=== PATIENT | female | born 1950 | race Caucasian/White ===

== ENCOUNTER → 2019-06-08 11:03 | Outpatient (BNVA) | payer MEDICARE, OTHER, SELFPAY | PROVIDERS: Visit Provider Student in an Organized Health Care Education/Training Program | DX: L72.9 Follicular cyst of the skin and subcutaneous tissue, unspecified (principal); M67.442 Ganglion, left hand | CPT/HCPCS: 99202; 99203 ==

== ENCOUNTER 2019-06-21 08:46 | Day surgery (SDC) | payer MEDICARE, OTHER, SELFPAY ==
[2019-06-21 09:01] VITALS: BP 150/78; PULSE 70; RESP 16; TEMP 36.4; O2SAT 98
--- NOTE | 2019-06-21 10:10 | PDOC.DSDIS_ITS ---
Documented by User: Kari Khan 06/21/19 10:14 Discharge Plan Disposition Patient Disposition: HOME Condition: Good Discharge Details Reason For Visit: Cyst of left index finger Attending Provider: Anurag Gonzalez Primary Care Provider: Arianne Gregory Home Meds and New Rx's Prescriptions: New acetaminophen 500 mg tablet 500 mg PO Q6H PRN (Reason: pain) Qty: 60 RF: 2 ibuprofen 600 mg tablet 600 mg PO TID PRN (Reason: pain) Qty: 60 RF: 2 Continued atenolol 25 mg tablet 25 mg PO DAILY RF: 0 hydrochlorothiazide 12.5 mg tablet 12.5 mg PO DAILY RF: 0 simvastatin 10 mg tablet 10 mg PO DAILY RF: 0 Discharge Instructions Additional Instructions: Discharge Instructions Activity: You should keep the hand elevated as much as possible for the first few days. You may use the other fingers as tolerated but avoid trying to do too much too soon. You may perform light activities with dressing in place. Dressing/Cast: Keep the dressing on for two days. You may then remove the dressing and cover with a bandaid. It may get wet after two days. Medications: - You should take Tylenol and Ibuprofen for baseline pain control. - You may apply ice over the finger. Follow-up: 7 days for suture removal Referrals: Anurag Gonzalez MD [ [facility] STAFF PHYSICIAN] - Activity:: Elevate Remove Dressings/Wound Care:: 48 hours Shower/Bathe:: 48 hours Diet:: As Tolerated Discharge Orders Discharge Orders: Discharge Order (Routine); Ordered 06/21/19 Ordered By: Kari Khan DS: Diagnosis Discharge Diagnosis (1) Mucous cyst of digit of left hand: Status: Acute Documented by User: Anurag Gonzalez MD 06/21/19 11:23 Discharge Plan Disposition Patient Disposition: HOME Condition: Good Discharge Details Reason For Visit: Cyst of left index finger Attending Provider: Anurag Gonzalez Primary Care Provider: Arianne Gregory Home Meds and New Rx's Prescriptions: New acetaminophen 500 mg tablet 500 mg PO Q6H PRN (Reason: pain) Qty: 60 RF: 2 ibuprofen 600 mg tablet 600 mg PO TID PRN (Reason: pain) Qty: 60 RF: 2 Continued atenolol 25 mg tablet 25 mg PO DAILY RF: 0 hydrochlorothiazide 12.5 mg tablet 12.5 mg PO DAILY RF: 0 simvastatin 10 mg tablet 10 mg PO DAILY RF: 0 Discharge Instructions Additional Instructions: Discharge Instructions Activity: You should keep the hand elevated as much as possible for the first few days. You may use the other fingers as tolerated but avoid trying to do too much too soon. You may perform light activities with dressing in place. Dressing/Cast: Keep the dressing on for two days. You may then remove the dressing and cover with a bandaid. It may get wet after two days. Medications: - You should take Tylenol and Ibuprofen for baseline pain control. - You may apply ice over the finger. Follow-up: 7 days for suture removal Referrals: Anurag Gonzalez MD [ [facility] STAFF PHYSICIAN] - Activity:: Elevate Remove Dressings/Wound Care:: 48 hours Shower/Bathe:: 48 hours Diet:: As Tolerated Discharge Orders Discharge Orders: Discharge Order (Routine); Ordered 06/21/19 Ordered By: Kari Khan
[2019-06-21] MEDS: Sodium Bicarbonate 50 MEQ/50 ML VIAL (11:44)
[2019-06-21] MEDS: Lidocaine 1% Multi-Dose 50 ML VIAL (11:44)
--- NOTE | 2019-06-21 11:48 | SOFT_PTH ---
PATIENT: Sandi Machuca LOC: [facility] U#:[id number] AGE/SX: 69/F ROOM: RE06/21/[address]: Anurag Gonzalez MD : 1950 BED: DIS: 06/21/2019 SPEC #: [id number] RECD: 06/21/19 12:53 STATUS: JEWEL REQ #: [id number] JANE: 06/21/19 11:[address]: Anurag Gonzalez DEPT: Surgical Specimen RECD BY: Barby Mandel ENTERED: 06/21/19 12:54 SP TYPE: SOFT OTHR DR: Arianne Gregory Tissues: 1 - SOFT TISSUE MISC (INC. LIPOMA) Procedures: GROSS AND MICRO LEVEL 4 Comments: [id number]
--- NOTE | 2019-06-21 18:09 | W.PM.OP ---
Date of service: 06/21/19 Time of Service: 14:09 Operative Note Operative Note DATE OF PROCEDURE: 06/21/19 PRE-OP DIAGNOSIS: Left Index Finger Cyst POST-OP DIAGNOSIS: same PROCEDURE: Excisional Biopsy of Left Index Finger Mass SURGEON: Anurag Gonzalez ANESTHESIA: local ESTIMATED BLOOD LOSS: 0 PATHOLOGY: other (Cental core of likely caseating inclusion cyst) COMPLICATIONS: None Patient was transported to: same day Patient's condition: stable Indications: I have seen Sandi in clinic for a prominent cyst about the left index finger. It was very prominent and caused discomfort with any direct palpation. The symptoms had not responded to conservative measures. I discussed excisional biopsy with the patient. I reviewed the risks of the procedure to include, but not limited to, bleeding, infection, pain, stiffness, recurrence. Despite these risks, the patient elected to proceed. Findings: There was a well-circumscribed cyst with a chalky material, likely a caseating granuloma or epidermal inclusion cyst. The core of the cyst was sent to pathology. No surrounding changes to the skin or tissue. It was removed in whole. Procedure Description: Lizzie was greeted in the preoperative holding area where the correct side was identified and marked. The consent was reviewed with the patient and signed. All questions were answered. Lizzie was taken back to the operating room. The patient was placed into the supine position on the operating room table with the left arm on an arm board. All bony prominences were well padded. No prophylactic antibiotics were administered since this was a clean, elective hand surgical case. The left arm was then prepped with Chloraprep and draped in a standard fashion with stockinette and extremity drape. A timeout to confirm correct identity, side and site, procedure, allergies, anesthesia, and medical concerns was performed. The surgical site was marked as a longitudinal incision just to the radial side of the mass. This area was then anesthetized with 1% Lidocaine. The patient tolerated this well and once the anesthetic had setup, the procedure began. A longitudinal incision was made through skin only, approximately 1cm. The deep tissues were dissected bluntly. There is a thin covering to an obvious cystic structure. The capsule was entered and there is a chalky caseating type material. This material in the cyst was removed and there was a solid core which was sent to pathology. This entire area was excised and removed. There was no apparent invasion to normal tissue. There is no change to the tissue around this area. The wound was then irrigated and the skin was closed with a 4-0 Nylon. This was dressed with gauze and a Conform dressing. The patient tolerated the procedure well and was returned to the Same Day Surgery area in a stable condition suffering no known complication.
== END 2019-06-21 12:40 | disposition home or self-care (01) ==
PROVIDERS: PCP Family Medicine; Visit Provider Student in an Organized Health Care Education/Training Program
PROC: (CPT 26160; principal; 2019-06-21 11:15)
DX: L94.2 Calcinosis cutis (principal)
CPT/HCPCS: 11421; 88305; 88304

== ENCOUNTER 2019-06-28 09:00 | Outpatient (CLI) | payer MEDICARE, OTHER, SELFPAY | END 2019-06-28 09:20 | PROVIDERS: PCP Family Medicine | DX: Z48.815 Encounter for surgical aftercare following surgery on the digestive system (principal); Z72.9 Problem related to lifestyle, unspecified ==

== ENCOUNTER 2019-07-07 01:46 | Outpatient (CLI) | payer MEDICARE, OTHER, SELFPAY ==
[2019-07-07 07:54] LABS: HCT 47.3 % (36.0-46.0); HGB 15.8 g/dL (12.0-15.5); Mean Corp. HGB Concentration 33.4 g/dL (32.0-36.0); Mean Corpuscular Volume 89.8 fL (80-95); Mean Platelet Volume 10.2 fL (8.0-11.0); Platelet Count 285 x1000/uL (130-400); RBC 5.27 m/cumm (4.00-5.20); RBC Distribution Width 15.1 % (11.7-14.6)
[2019-07-07 08:42] LABS: ALT 24 U/L (14-59); AST 14 U/L (15-37); Albumin 3.9 g/dL (3.4-5.0); Alkaline Phosphatase 60 U/L (46-116); Anion Gap 9.8 mmol/L (3-11); BUN 25 mg/dL (7-18); Bilirubin, Total 0.6 mg/dL (0.2-1.0); CO2 30.2 mmol/L (21.0-32.0); CREATININE 1.69 mg/dL (0.55-1.02); Calcium 9.4 mg/dL (8.5-10.1); Calculated LDL 118 mg/dL; Chloride 102 mmol/L (98-107); Cholesterol 188 mg/dL (50-200); Estimated GFR 29.92 (mL/min/1.73m2); Glucose 97 mg/dL (70-100); HDL Cholesterol 42 mg/dL (40-60); Potassium 3.8 mmol/L (3.5-5.1); Sodium 142 mmol/L (136-145); Total Protein 7.3 g/dL (6.4-8.2); Triglyceride 143 mg/dL (30-150)
== END 2019-07-07 02:06 ==
PROVIDERS: PCP Family Medicine; Visit Provider Family Medicine
DX: E78.00 Pure hypercholesterolemia, unspecified (principal); N19 Unspecified kidney failure; Z87.448 Personal history of other diseases of urinary system
CPT/HCPCS: 36415; 80053; 80061; 85027

== ENCOUNTER 2020-07-05 01:44 | Outpatient (CLI) | payer MEDICARE, OTHER, SELFPAY ==
[2020-07-05 08:13] LABS: HGB 15.3 g/dL (11.2-15.7); MCH 30.2 pg (27.0-33.0); MCV 88.8 fL (80-95); MPV 10.6 fL (8.0-11.0); Platelet Count 254 10^3/uL (130-400); RBC 5.07 10^6/uL (3.93-5.22); RDW 14.9 % (11.7-14.6); WBC 10.15 10^3/uL (4.4-10.8)
[2020-07-05 09:35] LABS: ALT 18 U/L (14-59); AST 15 U/L (15-37); Albumin 3.7 g/dL (3.4-5.0); Alkaline Phosphatase 58 U/L (46-116); Anion Gap 7.8 mmol/L (3-11); BUN 28 mg/dL (7-18); Bilirubin, Total 0.5 mg/dL (0.2-1.0); CO2 31.2 mmol/L (21.0-32.0); CREATININE 1.79 mg/dL (0.55-1.02); Calcium 9.1 mg/dL (8.5-10.1); Chloride 103 mmol/L (98-107); Estimated GFR 27.92 (mL/min/1.73m2); Glucose 96 mg/dL (74-106); Potassium 3.5 mmol/L (3.5-5.1); Sodium 142 mmol/L (136-145)
== END 2020-07-05 02:04 ==
PROVIDERS: PCP Family Medicine; Visit Provider Family Medicine
DX: Z87.448 Personal history of other diseases of urinary system (principal); N19 Unspecified kidney failure; Z00.00 Encounter for general adult medical examination without abnormal findings
CPT/HCPCS: 36415; 80053; 80061; 85027

== ENCOUNTER → 2020-08-12 08:32 | Outpatient (BNVA) | payer MEDICARE, OTHER, SELFPAY | PROVIDERS: PCP Family Medicine; Referring Provider Family Medicine; Visit Provider Student in an Organized Health Care Education/Training Program | DX: M65.331 Trigger finger, right middle finger (principal) | CPT/HCPCS: 20550; 99203; 99214; J1030 ==

== ENCOUNTER 2021-07-31 02:42 | Outpatient (CLI) | payer MEDICARE, OTHER, SELFPAY ==
[2021-07-31 10:09] LABS: ALT 21 U/L (14-59); AST 12 U/L (15-37); Albumin 3.9 g/dL (3.4-5.0); Alkaline Phosphatase 56 U/L (46-116); Anion Gap 9.9 mmol/L (3-11); BUN 28 mg/dL (7-18); Bilirubin, Total 0.4 mg/dL (0.2-1.0); CO2 31.1 mmol/L (21.0-32.0); CREATININE 1.8 mg/dL (0.55-1.02); Calcium 9.7 mg/dL (8.5-10.1); Calculated LDL 118 mg/dL (<100); Chloride 100 mmol/L (98-107); Cholesterol 193 mg/dL (<200); Estimated GFR 27.66 (mL/min/1.73m2); Glucose 102 mg/dL (74-106); HDL Cholesterol 49 mg/dL (40-60); Potassium 3.4 mmol/L (3.5-5.1); Sodium 141 mmol/L (136-145); Total Protein 7.4 g/dL (6.4-8.2); Triglyceride 134 mg/dL (<150)
== END 2021-07-31 02:43 | disposition home or self-care (01) ==
LOC: LBO 02:42
PROVIDERS: PCP Family Medicine; Visit Provider Family Medicine
DX: I10 Essential (primary) hypertension (principal); E78.00 Pure hypercholesterolemia, unspecified; N19 Unspecified kidney failure; Z00.00 Encounter for general adult medical examination without abnormal findings
CPT/HCPCS: 36415; 80053; 80061

== ENCOUNTER → 2022-03-04 07:51 | Outpatient (BNVA) | payer MEDICARE, OTHER, SELFPAY | PROVIDERS: PCP Family Medicine; Referring Provider Family Medicine; Visit Provider Surgery | DX: Z86.010 Personal history of colon polyps (principal); R19.5 Other fecal abnormalities | CPT/HCPCS: 99214 ==

== ENCOUNTER 2022-03-13 07:08 | Day surgery (SDC) | payer MEDICARE, OTHER, SELFPAY ==
--- NOTE | 2022-03-12 22:57 | PDOC.DSDIS_ITS ---
Discharge Plan Disposition Patient Disposition: HOME Condition: Good Discharge Details Reason For Visit: Blood in stool Attending Provider: Lopez Camara Primary Care Provider: Arianne Gregory Home Meds and New Rx's Prescriptions: Continued atenolol 25 mg tablet 25 mg PO DAILY hydrochlorothiazide 12.5 mg tablet 12.5 mg PO DAILY simvastatin 10 mg tablet 10 mg PO HS Discharge Instructions Instructions: Colorectal Polyps (DC), Colonoscopy (DC) Referrals: Lopez Camara MD [ [facility] STAFF PHYSICIAN] - Activity:: Activity as Tolerated Diet:: As Tolerated Discharge Orders Discharge Orders: Discharge Order (Routine); Ordered 03/13/22 Ordered By: Lopez Camara Discharge Data Discharge Comment: Ok for d/c; follow up with primary care DS: Diagnosis Discharge Diagnosis (1) Colorectal polyp detected on colonoscopy: Status: Acute Asessment and Plan: 1. Schedule an appointment to see your primary care physican for routine follow up and result
--- NOTE | 2022-03-12 23:01 | COLE_ITS ---
Colonoscopy Report Date of procedure: 03/13/22 Pre-op diagnosis general: Blood in stool Post-op diagnosis procedure note: other (colorectal polys cecum and rectal) Procedure: colonoscopy with biopsy Surgeon: Lopez Camara Anesthesia Type: MAC Estimated blood loss (mL): 10 Pathology: other (cecal poly, rectal polyps) Complications: None Disposition: same day Indications: Sandi is a 71-year-old woman with a positive Cologuard screening test Prep: Miralax/Dulcolax Procedure Start Time: 08:49 Procedure End Time: 09:38 Retraction Time: 20 Findings: 2 medium polyps in cecum, 2 rectal polyps (25 cm and 30 sm) Procedure Description: After the induction of monitored anesthetic care, and with the patient in left lateral decubitus position, I began by performing an external anorectal exam.? Perineum and skin were normal, as was the anal verge.? There was no evidence of external hemorrhoids.? Next, I performed a digital rectal exam.? I did not appreciate any abnormal findings.? Next, I advanced a colonoscope into the rectal vault.? I performed retroflexion.? I did not see signs of pathologic internal hemorrhoids.? Using insufflation, I then advanced the colonoscope beyond the rectal folds and into the sigmoid colon before advancing towards the cecum.? The quality of the prep was good.? The scope was noted to be in the cecum by identification of the ileocecal valve and appendiceal orifice.? I then began withdrawing the colonoscope using repeated irrigation as necessary for full evaluation of the colonic mucosa. Around the distal cecum I identified 2 medium sized polyps. They appeared sessile in character. ?I was able to remove them with a cold forceps. ?I examined the site, and there was minimal bleeding. ?Once this was completed, I continued to withdraw the scope and examine the remainder of the colonic mucosa.?Around 25 and 30 cm from the anal verge I ident ified 2 more polyps. They both appeared sessile. ?I was able to remove them with a cold forceps. ?I examined the site, and there was minimal bleeding. ?Once this was completed, I continued to withdraw the scope and examine the remainder of the colonic mucosa. Once the scope was withdrawn to the level of the rectum, great care was taken to examine portions of the rectal folds.? Finally, the scope was withdrawn and the patient was brought to the same-day surgery recovery unit as the anesthetic wore off. ?The findings and instructions were shared with the patient prior to discharge.
[2022-03-13 07:26] VITALS: BP 148/92; PULSE 61; RESP 16; TEMP 36.5; O2SAT 100
[2022-03-13] MEDS: Lactated Ringers 1,000 ML 80 ML IV (07:51)
--- NOTE | 2022-03-13 08:35 | W.ANESPRE ---
General Info Date of Service Date Performed: 03/13/22 Height: 5 ft 6 in Weight: 65.4 kg Body Mass Index (BMI): 23.2 Surgical Procedure: Operation Date: 03/13/22 08:50 Proposed Procedure Side Surgeon p Colonoscopy Lopez Camara MD Meds Allergies and Home Medications Allergies Allergy/AdvReac Type Severity Reaction Status Date / Time niacin AdvReac Verified 03/13/22 07:25 Home Medication Medication Instructions Recorded atenolol 25 mg tablet 25 mg PO DAILY 06/08/19 hydrochlorothiazide 12.5 mg tablet 12.5 mg PO DAILY 06/08/19 simvastatin 10 mg tablet 10 mg PO HS 06/08/19 Current Visit Medications: Current Medications Generic Name Dose Route Start Last Admin Trade Name Freq PRN Reason Stop Dose Admin Ringer's Solution 1,000 mls @ 80 mls/hr 03/13/22 06:00 03/13/22 07:51 IV 04/11/22 23:59 80 mls/hr INFUSION JOSETTE Administration IV Miscellaneous Supplies 1 each 03/13/22 06:00 Iv Access IV 04/11/22 23:59 DIRECTED JOSETTE Sodium Chloride 0 ml 03/13/22 06:00 Normal Saline Flush 10 Ml Syr IV 04/11/22 23:59 PRN PRN Sodium Chloride 0 ml 03/13/22 06:00 Normal Saline 10 Ml Vial IJ 04/11/22 23:59 DIRECTED PRN Sterile Water 0 ml 03/13/22 06:00 Water,Injection,Sterile 10 Ml Vial IJ 04/11/22 23:59 DIRECTED PRN PFSH Active Problems Active Problems: Problem Status Onset Code Positive colorectal cancer screening using Cologuard test R19.5 Blood in stool K92.1 Smoker F17.200 Medical History Medical History Hx of essential hypertension Family Hx also Hx of hyperlipidemia Kidney failure Pt. denies this Pain of left calf Trigger middle finger of right hand Surgical History Surgical History (Updated 03/13/22 @ 07:24 by Hilario Alcocer) Hx of colonoscopy Hx of tonsillectomy Mucous cyst of digit of left hand (06/21/19) S/P excision from left index finger Tobacco Smoking/Tobacco Use Status: Current every day Tobacco Type: cigarettes Smoking cigarettes per day: 8 Alcohol Alcohol Intake: current Alcohol intake frequency: a few times a month Alcohol type: wine Substance Use Substance use: Never Substance use type: does not use Vital Signs and Lab Results Vital Signs Most Recent Vital Signs in EMR: Most Recent Vital Signs Temp Pulse Resp BP Pulse Ox 36.5 C 61 16 148/92 H 100 03/13/22 07:26 03/13/22 07:26 03/13/22 07:26 03/13/22 07:26 03/13/22 07:26 Lab Results Blood Type / Crossmatch: No Data to Display Complete Blood Count: No Data to Display Complete Metabolic Panel: No Data to Display Liver Function Panel: No Data to Display Coagulation Panel: No Data to Display Cardiac Panel: No Data to Display Arterial Blood Gas: No Data to Display Venous Blood Gas: No Data to Display Pancreas Panel: No Data to Display Thyroid Panel: No Data to Display Infectious Disease: No Data to Display Blood Cultures: No Data to Display Toxicology Panel: No Data to Display Anesthesia Assessment and Plan Anesthesia History Personal History: No History of Anesthesia Complications Family History: No Family History of Anesthesia Complications Exercise Tolerance Exercise Tolerance: Metabolic Equivalents>4 Pertinent Negatives Pertinent Negatives: No Symptoms of GERD, No Major Cardiovascular Symptoms or Complaints, No Major Pulmonary Symptoms or Complaints (1/2 ppd 40 years, ) and No History of CVA/TIA Cardiac & Pulmonary Exam Cardiac Exam: Normal S1/S2 Heart Sounds Pulmonary Exam: Clear Bilateral Breath Sounds Implantable Cardiac Device Does patient have a Pacemaker or an ICD?: No Airway Exam Known Difficult Airway: No Mallampati Class: 1 Mouth Opening: Normal (> 3cm) Thyromental Distance: Greater than 3 cm Neck Range of Motion: Full ROM Neck Circumference: Thick Teeth Condition: Normal Dentition ASA Classification ASA Score: ASA 2 Emergency Case?: No NPO Status NPO Status: NPO Clears >2 hours, Solids >8 hours Anesthesia Plan Resuscitation Status: Full Code Anesthesia Technique: General Anesthesia Airway Planned: Natural Airway Monitors Used: Standard Monitors
[2022-03-13 08:37] VITALS: BMI 23.2
--- NOTE | 2022-03-13 09:10 | BOWEL_PTH ---
PATIENT: Sandi Machuca LOC: [facility] U#:[id number] AGE/SX: 71/F ROOM: RE03/13/[address]: Lopez Camara MD : 1950 BED: DIS: 03/13/2022 SPEC #: [id number] RECD: 03/13/22 12:52 STATUS: JEWEL REQ #: [id number] JANE: 03/13/22 09:[address]: Lopez Camara DEPT: Surgical Specimen RECD BY: Barby Mandel ENTERED: 03/13/22 12:53 SP TYPE: Bowel OTHR DR: Arianne Gregory Tissues: 1 - BIOPSY BOWEL 2 - BIOPSY BOWEL 3 - BIOPSY BOWEL Procedures: GROSS AND MICRO LEVEL 4 Comments: [id number]
[2022-03-13 09:38] VITALS: BP 116/83; PULSE 56; RESP 16; TEMP 36.4; O2SAT 96
--- NOTE | 2022-03-13 09:42 | W.ANESPOSTOP ---
Postoperative Evaluation Date, Time and Location Date Performed: 03/13/22 Time Performed: 09:42 Patient Location: Day Surgery Unit Vital Signs Most Recent Imported Vital Signs: Most Recent Vital Signs Temp Pulse Resp BP Pulse Ox 36.5 C 61 16 148/92 H 100 03/13/22 07:26 03/13/22 07:26 03/13/22 07:26 03/13/22 07:03/13/22 07:26 Most Recent Manually Entered Vital Signs: Adult Blood Pressure: 116/83 Heart Rate: 56 Respirations: 10 Oxygen Saturation (%): 97 Temperature (C): 36.3 C Pain Score (0-10 Scale): 0 Pain Score Most Recent Pain Score: Most Recent Pain Score Pain Level 0 03/13/22 07:26 Assessment Mental Status: Awake (Alert & Oriented to Patient Baseline) Airway and Respiratory Function: Patent airway with normal (patient baseline) respiratory exam Cardiovascular Function: Hemodynamically Stable Hydration Status: Adequately Hydrated Nausea & Vomiting: No Nausea or Vomiting Pain: Pt. Denies Any Pain Peripheral Nerve Block: Patient did not receive a nerve block
[2022-03-13 09:43] VITALS: BP 116/83; PULSE 56; RESP 10; TEMPC 36.3; O2SAT 97
[2022-03-13 10:13] VITALS: BP 132/76; PULSE 57; RESP 16; TEMP 36.5; O2SAT 100
== END 2022-03-13 10:52 | disposition home or self-care (01) ==
PROVIDERS: PCP Family Medicine; Visit Provider Surgery
PROC: 0DJD8ZZ Inspection of Lower Intestinal Tract, Via Natural or Artificial Opening Endoscopic (ICD-10-PCS; CPT 45378; principal; 2022-03-13 08:45)
DX: K92.1 Melena (principal); K62.1 Rectal polyp; K63.5 Polyp of colon; K63.89 Other specified diseases of intestine
CPT/HCPCS: 45380; 88305

== ENCOUNTER → 2022-05-07 02:24 | Outpatient (CLI) | payer MEDICARE, OTHER, SELFPAY ==
--- NOTE | 2022-05-07 | DI.DEXA_ITS ---
Exam(s) XR DEXA BONE DENSITY W/WO DIVINE EXAM: XR DEXA BONE DENSITY W/WO DIVINE CLINICAL HISTORY: MENOPAUSE Z78.0, SCREENING FOR OSTEOPOROSIS TECHNIQUE: COMPARISON: No exams were available for comparison FINDINGS: Lateral Spine Image: Unremarkable. No compression deformities identified. Left hip: Total T-Score: -2.0. Total Z-Score: -0.3 T- and Z-scores: Findings are consistent with osteopenia. Lumbar Spine: Total T-Score: -1.1 Total Z-Score: 1.2 T- and Z-scores: Findings are consistent with osteopenia. IMPRESSION: No evidence of osteoporosis.
== END ==
PROVIDERS: PCP Family Medicine; Visit Provider Family Medicine
DX: Z78.0 Asymptomatic menopausal state (principal); Z13.820 Encounter for screening for osteoporosis; M85.89 Other specified disorders of bone density and structure, multiple sites
CPT/HCPCS: 77080

== ENCOUNTER 2023-06-02 15:01 | Outpatient (REF) | payer MEDICARE, OTHER, SELFPAY ==
[2023-06-02 15:54] LABS: HGB 15.7 g/dL (11.2-15.7); MCH 29.8 pg (27.0-33.0); MCHC 33.4 % (32.0-36.0); MCV 89 fL (80-95); MPV 11.4 fL (8.0-11.0); Platelet Count 272 10^3/uL (130-400); RBC 5.26 10^6/uL (3.93-5.22); RDW-SD 49.8 fL
[2023-06-02 16:11] LABS: ALT 28 U/L (14-59); AST 17 U/L (15-37); Albumin 3.8 g/dL (3.4-5.0); Alkaline Phosphatase 65 U/L (46-116); BUN 31 mg/dL (7-18); Bilirubin, Total 0.7 mg/dL (0.2-1.0); CREATININE 1.6 mg/dL (0.55-1.02); Calcium 9.8 mg/dL (8.5-10.1); Calculated LDL 120 mg/dL (<100); Chloride 103 mmol/L (98-107); Cholesterol 197 mg/dL (<200); Estimated GFR 33.84 (mL/min/1.73m2); Glucose 100 mg/dL (74-106); HDL Cholesterol 50 mg/dL (40-60); Potassium 3.9 mmol/L (3.5-5.1); Sodium 142 mmol/L (136-145); Total Protein 7.2 g/dL (6.4-8.2); Triglyceride 135 mg/dL (<150)
== END 2023-06-02 15:02 | disposition home or self-care (01) ==
LOC: NCHCN 15:01
PROVIDERS: PCP Family Medicine; Visit Provider Family Medicine
DX: E78.00 Pure hypercholesterolemia, unspecified (principal); N28.9 Disorder of kidney and ureter, unspecified; F17.200 Nicotine dependence, unspecified, uncomplicated; Z00.00 Encounter for general adult medical examination without abnormal findings
CPT/HCPCS: 80053; 80061; 85027

== ENCOUNTER 2024-07-06 01:50 | Outpatient (CLI) | payer MEDICARE, OTHER, SELFPAY ==
[2024-07-06 10:36] LABS: ALT 20 U/L (14-59); AST 21 U/L (15-37); Albumin 3.7 g/dL (3.4-5.0); Alkaline Phosphatase 64 U/L (46-116); Anion Gap 10.2 mmol/L (3-11); BUN 22 mg/dL (7-18); Bilirubin, Total 0.76 mg/dL (0.2-1.0); CO2 29.8 mmol/L (21.0-32.0); CREATININE 1.8 mg/dL (0.55-1.02); Calcium 9.7 mg/dL (8.5-10.1); Calculated LDL 113 mg/dL (<100); Chloride 105 mmol/L (98-107); Cholesterol 200 mg/dL (<200); Estimated GFR 29.02 (mL/min/1.73m2); Glucose 101 mg/dL (74-106); HDL Cholesterol 54 mg/dL (40-60); Potassium 3.6 mmol/L (3.5-5.1); Sodium 145 mmol/L (136-145); Triglyceride 165 mg/dL (<150); Vitamin D 25 Total 48.3 ng/mL (30-100)
== END 2024-07-06 01:51 | disposition home or self-care (01) ==
LOC: LBO 01:51
PROVIDERS: PCP Family Medicine; Visit Provider Family Medicine
DX: E78.00 Pure hypercholesterolemia, unspecified (principal); E55.9 Vitamin D deficiency, unspecified
CPT/HCPCS: 36415; 80053; 80061; 82306

== ENCOUNTER 2024-12-09 11:07 | Outpatient (CLI) | payer MEDICARE, OTHER, SELFPAY ==
--- NOTE | 2024-12-09 11:23 | DI.RAD_ITS ---
Exam(s) XR CHEST 2V PA LATERAL EXAM: XR CHEST 2V PA LATERAL CLINICAL HISTORY: Acute Cough. TECHNIQUE: 2D digital imaging was performed. COMPARISON: No exams were available for comparison FINDINGS: 2 views: Heart size is normal. The mediastinum is not widened. Lungs are clear. No infiltrates nor pleural effusions. IMPRESSION: No acute pulmonary findings. DATA REPOSITORY: RADIATION DOSE DELIVERED:
--- NOTE | 2024-12-09 11:27 | DI.[facility]AD_ITS ---
PROCEDURE INFORMATION: Exam: XR Chest Exam date and time: 12/09/2024 11:10 AM Age: 74 years old Clinical indication: Cough started yesterday TECHNIQUE: Imaging protocol: Radiologic exam of the chest. Views: 2 views. COMPARISON: No relevant prior studies available. FINDINGS: Lungs: Hyperexpanded lung guerrero consistent with COPD. No focal consolidation.. Pleural spaces: Unremarkable. No pleural effusion. No pneumothorax. Heart/Mediastinum: Unremarkable. No cardiomegaly. Bones/joints: Unremarkable. IMPRESSION: No focal consolidation.. Dictated and Authenticated by: Rubén Boss MD. Orderin SHARON NARAYANAN MD
== END 2024-12-09 11:27 ==
PROVIDERS: PCP Family Medicine; Visit Provider Nurse Practitioner Family
DX: R05.1 Acute cough (principal)
CPT/HCPCS: 71046

== ENCOUNTER 2025-03-02 18:39 | Emergency (ER) | payer MEDICARE, OTHER, SELFPAY ==
[2025-03-02 18:40] VITALS: BP 110/69; PULSE 64; RESP 16; TEMP 37.1; O2SAT 95
--- NOTE | 2025-03-02 19:00 | DI.CT_ITS ---
Exam(s) CT ABDOMEN PELVIS W EXAM: CT ABDOMEN PELVIS W CLINICAL HISTORY: periumbilical pain. TECHNIQUE: Imaging Protocol: Axial computed tomography images with coronal and sagittal reformatted images were created and reviewed CONTRAST MATERIAL: Intravenous: Omnipaque 350 Contrast volume:75 ml Oral: no COMPARISON: No exams were available for comparison FINDINGS: ABDOMEN and PELVIS: Lung Bases: No acute findings. Liver: Normal density. No suspicious mass. Gallbladder and biliary tract: No radiodense calculus. No wall thickening or pericholecystic fluid. No biliary dilation. Pancreas: Normal density. No abnormal calcifications or inflammatory process. No evidence of mass. Spleen: Normal. Kidneys: Normal size, contour and axis. No radiodense stones. No obstructive uropathy. No suspicious masses seen. Adrenal glands: No masses seen. Vasculature: Abdominal aorta non-dilated. Atherosclerotic changes with both calcified and noncalcified plaque. Approximate 50 percent narrowing of the lumen of the distal aorta. Severe narrowing of the proximal SMA. Severe narrowing of the proximal right renal artery. The JEAN is patent. Severe plaque of the iliac arteries. The left common iliac artery of appears occluded. Severe disease of the left external iliac artery and proximal left common femoral artery. Soft tissues: Unremarkable. Bladder: No gross wall thickening. No calculi.No focal mass. Bowel: No obstruction. No bowel wall thickening. Appendix normal. Peritoneal cavity: No ascites. No focal collection. No mesenteric inflammatory response. No free air. Bones: Mild degenerative changes and mild scoliosis. Reproductive organs: Unremarkable. Lymph nodes: No pathologically enlarged lymph nodes. IMPRESSION:: No acute abnormality in the abdomen or pelvis. Severe atherosclerotic disease of the aorta and branch vessels. 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 No evidence of bowel ischemia. 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 The preliminary [facility] report was reviewed. RADIATION DOSE DELIVERED: Total DLP DATA REPOSITORY: All CT scans at this facility are submitted to the National Radiology Data Registry (NRDR) Dose Index Registry (DIR) with the [employer] (ACR). RADIATION OPTIMIZATION: All CT scans at this facility use at least one of these dose optimization techniques: automated exposure control; mA and/or kV adjustment per patient size (includes targeted exams where dose is matched to clinical indication); or iterative reconstruction.
[2025-03-02 19:36] LABS: Abs Immature Grans 0.02 10^3/uL (0.0-0.06); HCT 41.3 % (36.0-46.0); HGB 14.0 g/dL (11.2-15.7); Immature Grans % 0.2 %; MCH 29.4 pg (27.0-33.0); MCHC 33.9 % (32.0-36.0); MCV 87 fL (80-95); MPV 9.9 fL (8.0-11.0); Platelet Count 228 10^3/uL (130-400); RBC 4.76 10^6/uL (3.93-5.22); RDW 14.8 % (11.7-14.6); RDW-SD 47.3 fL; WBC 10.13 10^3/uL (4.4-10.8)
[2025-03-02 19:40] LABS: Glucose Negative (Negative)
[2025-03-02 19:48] LABS: C & S Indicated? Yes
[2025-03-02 19:51] LABS: ALT 26 U/L (14-59); AST 26 U/L (15-37); Albumin 3.7 g/dL (3.4-5.0); Alkaline Phosphatase 72 U/L (46-116); Anion Gap 9.8 mmol/L (3-11); BUN 21 mg/dL (7-18); Bilirubin, Total 0.8 mg/dL (0.2-1.0); CO2 28.2 mmol/L (21.0-32.0); Calcium 9.4 mg/dL (8.5-10.1); Chloride 101 mmol/L (98-107); Estimated GFR 39.23 (mL/min/1.73m2); Glucose 101 mg/dL (74-106); Lipase 127 U/L (<78); Potassium 3.9 mmol/L (3.5-5.1); Sodium 139 mmol/L (136-145); Total Protein 7.8 g/dL (6.4-8.2)
[2025-03-02] MEDS: Omnipaque 350 MG/ML 100 ML BTL 75 ML IJ (20:19)
[2025-03-02] MEDS: Normal Saline - Diluent 50 ML VIAL IJ (20:23)
--- NOTE | 2025-03-02 20:50 | DI.VRAD_ITS ---
PROCEDURE INFORMATION: Exam: CT Abdomen And Pelvis With Contrast Exam date and time: 03/02/2025 8:13 PM Age: 74 years old Clinical indication: Other: Periumbilical pain TECHNIQUE: Imaging protocol: Computed tomography of the abdomen and pelvis with contrast. Contrast material: OMNIPAQUE 350; Contrast volume: 75 ml; Contrast route: INTRAVENOUS (IV); COMPARISON: CR XR CHEST 2V PA LATERAL 12/09/2024 11:10 AM FINDINGS: Liver: Normal. Gallbladder and biliary ducts: Normal. Pancreas: Normal. Spleen: Normal. Adrenal glands: Normal. No mass. Kidneys and ureters: Normal. Stomach and bowel: Normal. Appendix: Appendix normal. Intraperitoneal space: Unremarkable. No free air. No significant fluid collection. Vasculature: Atherosclerotic disease of the visualized distal thoracic aorta. Atherosclerotic disease of the abdominal aorta and iliac arteries, with moderate narrowing of the distal abdominal aortic lumen (approximately 50%). Atherosclerotic plaque within the proximal SMA, causing severe luminal narrowing (series 8, image 29). Phleboliths within the pelvis. Lymph nodes: Unremarkable. No enlarged lymph nodes. Urinary bladder: Unremarkable as visualized. Reproductive: Unremarkable as visualized. Bones/joints: Minimal levoscoliosis of the lumbar spine. Soft tissues: Normal. IMPRESSION: 1. No acute abdominal or pelvic abnormality. 2. Other (less critical/noncritical/incidental) findings as above; please refer to the body of report for further details. Dictated and Authenticated by: Igor Purvis MD. Orderin Humberto Dior MD
--- NOTE | 2025-03-02 22:26 | NUR.NOTE ---
pt requesting a blanket. WAS OUT TO SPEAK WITH HER AND SHE WAS OUTSIDE PT WANTS TO KNOW IF SHE IS TRANSFERING OR CONSULT[place] [facility] [place] Barby states that pt should be consult and d/c home after. Pt advised of this. Nursing Note:
[2025-03-02] MEDS: Fosfomycin Tromethamine 3 GM PACKET PO (23:23)
[2025-03-02 23:24] VITALS: BP 123/81; PULSE 60; RESP 16; O2SAT 97
[2025-03-02 23:33] VITALS: BP 123/81; PULSE 60; RESP 16; TEMP 37.1; O2SAT 97
--- NOTE | 2025-03-02 23:35 | W.ED.GENAD ---
Discharge Plan Disposition Patient Disposition: Home Condition: Stable Discharge Details Clinical Impression: Acute UTI, Mesenteric artery thrombosis Primary Care Provider: Arianne Gregory ED Provider: Barby Paul Home Meds and New Rx's Prescriptions: Continued atenolol 25 mg tablet 25 mg PO DAILY hydrochlorothiazide 12.5 mg tablet 12.5 mg PO DAILY simvastatin 10 mg tablet 10 mg PO HS Discharge Instructions Instructions: Urinary Tract Infection, Adult ED Additional Instructions: You will need to see vascular in follow-up, [facility] is aware and should be contacting you to schedule follow-up You received a dose of antibiotic for suspected urinary tract infection we will send your urine for culture Please return should develop fever, chills, worsening pain, nausea vomiting or should any new concerns arise Referrals: Arianne Gregory [Primary Care Provider, Medicine] HPI General Date/Time Provider Initiated Documentation: 03/02/25 18:50. HPI Narrative: The patient is a 74-year-old female with a history of hypertension, hyperlipidemia, and tobacco abuse who presents with abdominal pain that started 48 hours ago. She reports no nausea, vomiting, fever, or chills. She is afebrile and nontoxic in appearance. Distal pulses are intact in all four extremities. There is no tenderness in the abdomen or CVA. No abdominal bruit or pulsatile mass is detected. Cardiac rate and rhythm are regular, and there is no respiratory distress. Related Data Home Medications ?Medication ?Instructions ?Recorded ?Confirmed atenolol 25 mg tablet 25 mg PO DAILY 06/08/19 03/02/25 hydrochlorothiazide 12.5 mg tablet 12.5 mg PO DAILY 06/08/19 03/02/25 simvastatin 10 mg tablet 10 mg PO HS 06/08/19 03/02/25 Allergies Allergy/AdvReac Type Severity Reaction Status Date / Time niacin AdvReac Other (See Verified 03/02/25 18:44 Comment) General Stated Complaint: Abd Prob STEVE: 3 Exam Narrative Exam Narrative: General Appearance: Normal. Vital signs: Within normal limits. HEENT: Within normal limits. Respiratory: No respiratory distress. Cardiovascular: Regular heart rate and rhythm. Gastrointestinal: No abdominal or CVA tenderness. No abdominal bruit or pulsatile mass. Extremities: Distal pulses intact in all extremities. Skin: Warm and dry, no rash. Neurological: Normal. Course Vital Signs Vital signs: Vital Signs Temperature 37.1 C 03/02/25 18:40 Pulse 64 03/02/25 18:40 Respiratory Rate 16 03/02/25 18:40 Blood Pressure 110/69 03/02/25 18:40 Pulse Oximetry 95 03/02/25 18:40 Temperature 37.1 C 03/02/25 23:33 Temperature Source Oral 03/02/25 23:33 Pulse 60 03/02/25 23:33 Respiratory Rate 16 03/02/25 23:33 Blood Pressure 123/81 03/02/25 23:33 Blood Pressure Mean 95 03/02/25 23:24 Blood Pressure Position Sitting 03/02/25 18:40 Pulse Oximetry 97 03/02/25 23:33 Oxygen Delivery Method Room Air 03/02/25 18:40 Oxygen Flow Rate 0 03/02/25 18:40 Pain Level 0 03/02/25 23:33 Lab/Test Results Lab/Test Results: 03/02/25 18:54 Urine - Reflex from Ua Urine Culture - Pending Laboratory Tests Range/Units 03/02/25 03/02/25 03/02/25 18:54 19:26 21:17 WBC (4.4-10.8) 10^3/uL 10.13 RBC (3.93-5.22) 10^6/uL 4.76 Hgb (11.2-15.7) g/dL 14.0 Hct (36.0-46.0) % 41.3 MCV (80-95) fL 87 MCH (27.0-33.0) pg 29.4 MCHC (32.0-36.0) % 33.9 RDW (11.7-14.6) % 14.8 H Plt Count (130-400) 10^3/uL 228 MPV (8.0-11.0) fL 9.9 Immature Gran % % 0.2 Neutrophils % % 49.2 Lymphocytes % % 35.2 Monocytes % % 10.2 Eosinophils % % 4.6 Basophils % % 0.6 Nucleated RBC % (0.0-0.3) % 0.0 Absolute Neutrophils (1.2-6.7) 10^3/uL 4.98 Absolute Lymphocytes (1.2-3.4) 10^3/uL 3.57 H Absolute Monocytes (0.1-0.8) 10^3/uL 1.03 H Absolute Eosinophils (0.0-0.7) 10^3/uL 0.47 Absolute Basophils (0.0-0.2) 10^3/uL 0.06 VBG Lactate (<or=2.0) mmol/L 1.0 Sodium (136-145) mmol/L 139 Potassium (3.5-5.1) mmol/L 3.9 Chloride (98-107) mmol/L 101 Carbon Dioxide (21.0-32.0) mmol/L 28.2 Anion Gap (3-11) mmol/L 9.8 BUN (7-18) mg/dL 21 H Creatinine (0.55-1.02) mg/dL 1.4 H Est GFR (CKD-EPI 2020) (mL/min/1.73m2) 39.23 Glucose (74-106) mg/dL 101 Calcium (8.5-10.1) mg/dL 9.4 Total Bilirubin (0.2-1.0) mg/dL 0.8 AST (15-37) U/L 26 ALT (14-59) U/L 26 Alkaline Phosphatase (46-116) U/L 72 Total Protein (6.4-8.2) g/dL 7.8 Albumin (3.4-5.0) g/dL 3.7 Lipase (<78) U/L 127 H Urine Color (Yellow) Yellow Urine Clarity (Clear) Sl Cloudy Urine pH (5-8) 6.0 Ur Specific [place] (1.005-1.025) 1.020 Urine Protein (Neg-Trace) mg/dL 30 H Urine Ketones (Negative) mg/dL Negative Urine Blood (Negative) Trace-intact H Urine Nitrite (Negative) Positive H Urine Bilirubin (Negative) Negative Urine Urobilinogen (Up to 0.2) mg/dL 0.2 Ur Leukocyte Esterase (Negative) Trace H Urine RBC (0-2) HPF 5-10 H Urine WBC (0-5) HPF 10-20 H Ur Epithelial Cells (Negative) HPF Rare Urine Crystals (Negative) HPF Negative Urine Bacteria (Negative) HPF Packed Urine Casts (Negative) LPF Negative Urine Mucus (Negative) Negative Ur Culture Indicated? Yes Urine Glucose (Negative) mg/dL Negative Medical Decision Making Laboratory: No significant leukocytosis. Urinalysis shows possible infection. Negative lactate. Imaging: CT abdomen/pelvis/chest shows significant SMA stenosis, no significant acute abnormality. Initial Assessment: 74-year-old female with history of hypertension, hyperlipidemia, and tobacco abuse presents with abdominal pain for 48 hours. Denies nausea, vomiting, fever, or chills. Afebrile and nontoxic. Distal pulses intact to all extremities. No abdominal tenderness, CVA tenderness, abdominal bruit, or pulsatile mass. Cardiac rate rhythm regular, no respiratory distress. Differential Diagnosis: - Mesenteric ischemia: Low suspicion clinically based on exam and benign abdominal exam. ED Course: - CT abdomen/pelvis and chest ordered: significant stenosis to the SMA, no evidence of significant acute abnormality. - No significant leukocytosis. - Urinalysis shows possible infection; culture to be sent. - Initiate fosfomycin. - Consulted Dr. Palmer (vascular surgery) at [facility]: recommended close outpatient follow-up with vascular surgery. - Referral to be placed. - Negative lactate. - Reviewed return precautions; patient expressed understanding. Final Assessment: Abdominal pain with significant SMA stenosis noted on CT, no significant acute abnormality. Possible urinary infection to be treated with fosfomycin. Low clinical suspicion for mesenteric ischemia based on exam. Referral to vascular surgery for close outpatient follow-up. Clinical Impression: - Abdominal pain - Significant SMA stenosis - Possible urinary infection Disposition: - Discharge - Follow-Up: Referral to vascular surgery for close outpatient follow-up. MDM Components Evaluation: - Number of Differential Diagnoses or Management Options: Mesenteric ischemia. - Amount and Complexity of Data Reviewed: CT abdomen/pelvis and chest, urinalysis, lactate, consultation with Dr. Palmer (vascular surgery). - Risk of Complication and Morbidity or Mortality: Low suspicion for mesenteric ischemia, possible urinary infection. PFSH All Active Problems Mesenteric artery thrombosis (Acute) Acute UTI (Acute) Hyperplastic colon polyp (Acute) Serrated adenoma of colon (Acute) Colorectal polyp detected on colonoscopy (Acute) Positive colorectal cancer screening using Cologuard test (Acute) Blood in stool (Acute) Smoker (Acute) Medical History (Updated 03/02/25 @ 23:17 by IRA Oliver) Pain of left calf Kidney failure Pt. denies this Trigger middle finger of right hand Hx of hyperlipidemia Hx of essential hypertension Family Hx also Surgical History (Updated 03/27/22 @ 11:22 by Princess Ojeda RN) Hx of tonsillectomy Hx of colonoscopy (~02/2022) Mucous cyst of digit of left hand (06/21/19) S/P excision from left index finger Social History Smoking/Tobacco Use Status: Current every day Tobacco Type: cigarettes Tobacco: How many years used: 30 Smoking risk assessment performed?: Yes Alcohol Intake: current Alcohol Intake frequency: a few times a month Alcohol type: wine Drug use: Never Substance use type: does not use Current gender identity: female Do you feel safe at home: Yes Do you feel safe in your relationship?: Yes
== END 2025-03-02 23:24 | disposition home or self-care (01) ==
PROVIDERS: Emergency Provider Physician Assistant; PCP Family Medicine
DX: K55.069 Acute infarction of intestine, part and extent unspecified (principal); R10.30 Lower abdominal pain, unspecified; N39.0 Urinary tract infection, site not specified; E78.5 Hyperlipidemia, unspecified; F17.210 Nicotine dependence, cigarettes, uncomplicated
CPT/HCPCS: 99284; 99285; 80053; 83690; 87077; 74177; 81003; 81015; 83605; 85025; 87086; 87186; J3490

== ENCOUNTER → 2025-03-22 08:21 | Outpatient (BNVA) | payer MEDICARE, OTHER, SELFPAY | PROVIDERS: PCP Family Medicine; Referring Provider Family Medicine; Visit Provider Surgery | DX: Z12.11 Encounter for screening for malignant neoplasm of colon (principal) | CPT/HCPCS: NC OV ==

== ENCOUNTER → 2025-04-26 09:22 | Outpatient (BNVA) | payer MEDICARE, OTHER, SELFPAY | PROVIDERS: PCP Family Medicine; Referring Provider Family Medicine; Visit Provider Physical Therapy Assistant | DX: Z12.11 Encounter for screening for malignant neoplasm of colon (principal); Z86.0101 Personal history of adenomatous and serrated colon polyps | CPT/HCPCS: 99024 ==

== ENCOUNTER 2025-05-15 07:50 | Day surgery (SDC) | payer MEDICARE, OTHER, SELFPAY ==
--- NOTE | 2025-05-14 13:55 | W.PM.DSUDISC ---
Date of service: 05/15/25 Discharge Plan Disposition Patient Disposition: Home Condition: Good Discharge Details Reason For Visit: Screening colonoscopy Attending Provider: Lopez Camara Primary Care Provider: Arianne Gregory Home Meds and New Rx's Prescriptions: Continued aspirin 81 mg tablet 81 mg PO DAILY atenolol 25 mg tablet 25 mg PO DAILY hydrochlorothiazide 12.5 mg tablet 12.5 mg PO DAILY simvastatin 10 mg tablet 10 mg PO HS Discontinued polyethylene glycol 3350 17 gram/dose powder 17 g PO ONCE Qty: 238 0RF Rx Instructions: Take per colonoscopy instructions provided by ordering providers office bisacodyl [Dulcolax (bisacodyl)] 5 mg tablet,delayed release (DR/EC) 5 mg PO ONCE Qty: 4 0RF Rx Instructions: Take per colonoscopy instructions provided by ordering providers office Discharge Instructions Additional Instructions: Sandi, it was good seeing you today. I hope you feel well this afternoon. Things went smoothly. Your prep was excellent, and I could see everything fine, I did find, and removed a total of 6 polyps today. I suspect these will be a combination of adenomatous and non-adenomatous polyps similar to your last colonoscopy. I will see what the pathologist has to say with regards to the review, once I know the nature of these, I will let you know and have your next colonoscopy. If you need anything, please do not hesitate to call me at any time. 1. If tolerated, consume a soft, low fiber diet for 1-2 days. [address] Do not drive, drink alcohol, operate machinery, make critical decisions, or do activities that require coordination or balance for 24 hours. 3. Because air was put into your colon during the procedure, expelling air from your rectum (passing gas or farting) is normal. 4. You may not have a bowel movement for 1-3 days because of the colonoscopy prep. This is normal. 5. Go directly to the emergency room if you notice any of the following: Develop chills (warm to touch), or if you have a thermometer and your temperature is above 101 Difficulty breathing or difficultly swallowing Persistent vomiting Severe abdominal pain, other than gas cramps Severe chest pain Black, tarry stools Any bleeding ? exceeding one tablespoon 6. Call your physician if the site where your intravenous was started becomes red, swollen, painful, and warm to touch. 7. Your physician has reviewed your pre-procedure medications. Please continue to take those medications as previously ordered. You will be given specific information/education regarding any changes to your medications before leaving. Stand Alone Forms: Anesthesia Discharge Aris Brennan (DSU) Activity:: Activity as Tolerated Diet:: As Tolerated DS: Diagnosis Discharge Diagnosis (1) Encounter for screening colonoscopy: Status: Acute Asessment and Plan: Follow-up on polypectomy results
--- NOTE | 2025-05-14 13:56 | W.COLOREPORT ---
Date of service: 05/15/25 Time of Service: 09:33 Colonoscopy Report Date of procedure: 05/15/25 Pre-op diagnosis general: Screening colonoscopy Post-op diagnosis procedure note: other (Colon polyps) Procedure: Colonoscopy with polypectomy Surgeon: Lopez Camara Anesthesia Type: General:No Airway Estimated blood loss (mL): 5 Pathology: other (0.25 cm flat polyps at 65, 35, 30 (x 2) and 20 cm from the anal verge. 0.25 cm rectal polyp) Complications: None Disposition: same day Indications: Sandi is a 74-year-old woman who needs her next screening colonoscopy because of a positive Cologuard test Prep: Miralax/Dulcolax Procedure Start Time: 08:57 Procedure End Time: 09:21 Retraction Time: 15 Findings: 0.25 cm flat polyps at 65, 35, 30 (x 2) and 20 cm from the anal verge. 0.25 cm rectal polyp Procedure Description: After the induction of anesthesia, and with Sandi in left lateral decubitus position, I began by performing an external anorectal exam.? Perineum and skin were normal, as was the anal verge.? There was no evidence of external hemorrhoids.? Next, I performed a digital rectal exam.? I this was normal.? Next, I advanced a colonoscope into the rectal vault.? I performed retroflexion.? This appeared normal.? Using irrigation, I then advanced the colonoscope beyond the rectal folds and into the sigmoid colon before advancing towards the cecum.? The quality of the prep was excellent.? The scope was noted to be in the cecum by identification of the ileocecal valve and appendiceal orifice.? I then began withdrawing the colonoscope using repeated irrigation as necessary for full evaluation of the colonic mucosa. Around 65 cm from anal verge was a 0.25 cm flat polyp. Narrowband imaging was used to assist with the analysis. Features seem consistent with an adenomatous polyp, and I performed cold forcep polypectomy without any difficulty. I found 0.25 cm flat polyps at 55 cm, and 30 cm past the anal verge. At the 30 cm irais, there are 2 adenomatous appearing polyps. The polyps at 55 and 30 cm were removed with cold forceps just like the first segment. There was minimal bleeding from the sites. Another 0.25 cm flat polyp was found at 20 cm and removed with cold forceps. Finally, within the rectum just at the upper portion of the rectal vault was 1 another adenomatous appearing polyp. This was also removed with cold forceps without any difficulty. Within the rectum, great care was taken to examine portions of the rectal folds.? Finally, the scope was withdrawn and the patient was brought to the same-day surgery recovery unit as the anesthetic wore off. ?The findings and instructions were shared with the patient prior to discharge. [place] Bowel Prep [place] Bowel Prep Right Colon: 3 Left Colon: 3 Transverse Colon: 3 Total Score: 9
[2025-05-15 08:13] VITALS: BP 107/82; PULSE 58; RESP 16; TEMP 36.2; O2SAT 100
[2025-05-15] MEDS: Lactated Ringers 1,000 ML 80 ML IV (08:30)
--- NOTE | 2025-05-15 08:39 | W.ANESPRE ---
General Info Date of Service Date Performed: 05/15/25 Height: 5 ft 6 in Weight: 65.9 kg Body Mass Index (BMI): 23.4 Surgical Procedure: Operation Date: 05/15/25 09:05 Proposed Procedure Side Surgeon p Colonoscopy Lopez Camara MD Meds Allergies and Home Medications Allergies Allergy/AdvReac Type Severity Reaction Status Date / Time niacin AdvReac Other (See Verified 05/15/25 08:09 Comment) Home Medication ?Medication ?Instructions ?Recorded atenolol 25 mg tablet 25 mg PO DAILY 06/08/19 hydrochlorothiazide 12.5 mg tablet 12.5 mg PO DAILY 06/08/19 simvastatin 10 mg tablet 10 mg PO HS 06/08/19 aspirin 81 mg tablet 81 mg PO DAILY 04/26/25 Current Visit Medications: Current Medications Generic Name Dose Route Start Last Admin Trade Name Freq PRN Reason Stop Dose Admin Ringer's Solution 1,000 mls @ 80 mls/hr 05/15/25 06:00 05/15/25 08:30 IV 05/15/25 23:59 80 mls/hr INFUSION JOSETTE Administration IV Miscellaneous Supplies 1 each 05/15/25 06:00 Iv Access IV 05/15/25 23:59 DIRECTED JOSETTE Ondansetron HCl 4 mg 05/14/25 13:57 Ondansetron 4 Mg/2 Ml Vial IVP 06/13/25 13:56 Q4H PRN PRN Nausea / Vomiting Sodium Chloride 0 ml 05/15/25 06:00 Normal Saline Flush 10 Ml Syr IV 05/15/25 23:59 PRN PRN Sodium Chloride 0 ml 05/15/25 06:00 Normal Saline 10 Ml Vial IJ 05/15/25 23:59 DIRECTED PRN Sterile Water 0 ml 05/15/25 06:00 Water,Injection,Sterile 10 Ml Vial IJ 05/15/25 23:59 DIRECTED PRN PFSH Active Problems Active Problems: Problem Status Onset Code Encounter for screening colonoscopy Acute Z12.11 Hyperplastic colon polyp Acute K63.5 Serrated adenoma of colon Acute D12.6 Colorectal polyp detected on colonoscopy Acute K63.5 Positive colorectal cancer screening using Cologuard test Acute R19.5 Blood in stool Acute K92.1 Smoker Acute F17.200 Medical History Medical History Pain of left calf Kidney failure Pt. denies this Trigger middle finger of right hand Hx of hyperlipidemia Hx of essential hypertension Family Hx also Surgical History Surgical History Hx of tonsillectomy Hx of colonoscopy (~02/2022) Mucous cyst of digit of left hand (06/21/19) S/P excision from left index finger Tobacco Smoking/Tobacco Use Status: Current every day Tobacco Type: cigarettes Smoking cigarettes per day: 10 Alcohol Alcohol Intake: current Alcohol intake frequency: a few times a month Alcohol type: wine Substance Use Substance use: Never Substance use type: does not use Details: pt. smoked this AM(05/15/25) wine- months ago Vital Signs and Lab Results Vital Signs Most Recent Vital Signs in EMR: Most Recent Vital Signs Temp Pulse Resp BP Pulse Ox 36.2 C L 58 L 16 107/82 100 05/15/25 08:13 05/15/25 08:13 05/15/25 08:13 05/15/25 08:13 05/15/25 08:13 Anesthesia Assessment and Plan Anesthesia History Personal History: No History of Anesthesia Complications Family History: No Family History of Anesthesia Complications Exercise Tolerance Exercise Tolerance: Metabolic Equivalents>4 Pertinent Negatives Pertinent Negatives: No Symptoms of GERD Cardiac & Pulmonary Exam Cardiac Exam: Normal S1/S2 Heart Sounds Pulmonary Exam: Clear Bilateral Breath Sounds Implantable Cardiac Device Does patient have a Pacemaker or an ICD?: No Airway Exam Known Difficult Airway: No Mallampati Class: 1 Mouth Opening: Normal (> 3cm) Thyromental Distance: Greater than 3 cm Neck Range of Motion: Full ROM Neck Circumference: Thick Teeth Condition: Normal Dentition ASA Classification ASA Score: ASA 2 Emergency Case?: No NPO Status NPO Status: NPO Clears >2 hours, Solids >8 hours Anesthesia Plan Resuscitation Status: Full Code Anesthesia Technique: General Anesthesia Airway Planned: Natural Airway Monitors Used: Standard Monitors
[2025-05-15 08:40] VITALS: BMI 23.4
--- NOTE | 2025-05-15 09:10 | BOWEL_PTH ---
PATIENT: Sandi Machuca LOC: [facility] U#:[id number] AGE/SX: 74/F ROOM: RE05/15/[address]: Lopez Camara MD : [id number] BED: DIS: 05/15/2025 SPEC #: [id number] RECD: 05/15/25 12:31 STATUS: JEWEL RE #: [id number] JANE: 05/15/25 09:[address]: Lopez Camara DEPT: Surgical Specimen RECD BY: Barby Mandel ENTERED: 05/15/25 12:37 SP TYPE: Bowel OTHR DR: Arianne Gregory Tissues: 1 - BIOPSY BOWEL 2 - BIOPSY BOWEL 3 - BIOPSY BOWEL 4 - BIOPSY BOWEL 5 - BIOPSY BOWEL Procedures: GROSS AND MICRO LEVEL 4 Comments: [id number]
[2025-05-15 09:24] VITALS: BP 88/52; PULSE 54; RESP 16; TEMP 36.5; O2SAT 96
[2025-05-15 09:55] VITALS: BP 127/62; PULSE 51; RESP 16; TEMP 36.2; O2SAT 98
--- NOTE | 2025-05-15 09:56 | W.ANESPOSTOP ---
Postoperative Evaluation Date, Time and Location Date Performed: 05/15/25 Time Performed: 09:56 Patient Location: Day Surgery Unit Vital Signs Most Recent Imported Vital Signs: Most Recent Vital Signs Temp Pulse Resp BP Pulse Ox 36.5 C 54 L 16 88/52 L 96 05/15/25 09:24 05/15/25 09:24 05/15/25 09:24 05/15/25 09:24 05/15/25 09:24 Pain Score Most Recent Pain Score: Most Recent Pain Score Pain Level 0 05/15/25 09:24 Assessment Mental Status: Awake (Alert & Oriented to Patient Baseline) Airway and Respiratory Function: Patent airway with normal (patient baseline) respiratory exam Cardiovascular Function: Hemodynamically Stable Hydration Status: Adequately Hydrated Nausea & Vomiting: No Nausea or Vomiting Pain: Pt. Denies Any Pain Peripheral Nerve Block: Patient did not receive a nerve block
== END 2025-05-15 10:32 | disposition home or self-care (01) ==
LOC: SUR 07:50
PROVIDERS: PCP Family Medicine; Visit Provider Surgery
PROC: 0DJD8ZZ Inspection of Lower Intestinal Tract, Via Natural or Artificial Opening Endoscopic (ICD-10-PCS; CPT 45378; principal; 2025-05-15 09:00)
DX: Z12.11 Encounter for screening for malignant neoplasm of colon (principal); K62.1 Rectal polyp; D12.5 Benign neoplasm of sigmoid colon
CPT/HCPCS: 45380; 88305; J2704

== ENCOUNTER 2025-07-10 08:16 | Outpatient (REF) | payer MEDICARE, OTHER, SELFPAY ==
[2025-07-10 16:32] LABS: Vitamin D 25 Total 35 ng/mL (30-100)
[2025-07-10 16:43] LABS: ALT 16 U/L (10-49); AST 19 U/L (<34); Albumin 4.4 g/dL (3.4-5.0); Alkaline Phosphatase 63 U/L (46-116); Anion Gap 9.1 mmol/L (3-11); BUN 31 mg/dL (9-23); Bilirubin, Total 0.80 mg/dL (0.2-1.2); CO2 30.9 mmol/L (20.0-31.0); Calcium 9.7 mg/dL (8.3-10.6); Chloride 104 mmol/L (98-107); Cholesterol 187 mg/dL (<200); Glucose 95 mg/dL (74-106); HDL Cholesterol 55 mg/dL (>40); Potassium 3.5 mmol/L (3.5-5.1); Sodium 144 mmol/L (136-145); Total Protein 7.3 g/dL (5.7-8.2)
== END 2025-07-10 08:17 | disposition home or self-care (01) ==
LOC: NCHCN 08:16
PROVIDERS: PCP Family Medicine; Visit Provider Family Medicine
DX: E55.9 Vitamin D deficiency, unspecified (principal); E78.00 Pure hypercholesterolemia, unspecified; I10 Essential (primary) hypertension
CPT/HCPCS: 80053; 80061; 82306